=== PATIENT | male | born 1985 | race Caucasian/White ===

== ENCOUNTER 2022-12-13 16:13 | Emergency (ER) | payer BC, SELFPAY ==
[2022-12-13 16:30] VITALS: BP 141/78; PULSE 82; RESP 20; TEMP 37.1; O2SAT 98; BMI 27.3
--- NOTE | 2022-12-13 16:50 | EXP.UTC ---
Discharge Plan Disposition Patient Disposition: Home, Self-Care Condition: Good Prescriptions Prescriptions: New moxifloxacin 0.5 % drops 1 drp ophthalmic (eye) TID 7 Days Qty: 3 0RF Rx Instructions: left eye Referrals Follow up/Referrals: Provider,Referral, MD [Primary Care Provider] - See instructions Activity Restrictions/Add. Instructions Additional Instructions/Restrictions: Wash hands before and after applying eye drops Clean matting from eye with warm water and baby shampoo Follow up with your Family Doctor or Eye Doctor if no improvement or any worsening of symptoms Return if needed Clinical Impressions Clinical Impression: Conjunctivitis Stand Alone Forms Stand Alone Forms: Work/School Release Instructions Patient Instructions: DI for Conjunctivitis Discharge ED Provider: Olimpia Alan [facility] General Stated complaint: possible pink eye left Mode of Arrival: Ambulatory Source of Information: Patient Limitations: No Limitations Time Seen by Provider: 12/13/22 16:50 Description of Symptoms (Recalled from Triage Doc. by RN): pink eye HEENT Symptoms (Recalled from RN notes): Yes Resp Symptoms (Recalled from RN notes): No Skin Symptoms (Recalled from RN notes): No MS Symptoms (Recalled from RN notes): No Functional Status (Recalled from RN notes): n/a History of Present Illness Provider Complaint: Patient states that he noticed his left eye was looking red and matted this morning and as the day went on today it continued to have drainage and was getting worse so he came in to get it checked Related Data Previous Rx's Medication Instructions Recorded moxifloxacin 0.5 % eye drops 1 drp ophthalmic (eye) TID 7 days 12/13/22 #3 mL Allergies Allergy/AdvReac Type Severity Reaction Status Date / Time No Known Allergies Allergy Verified 12/13/22 16:43 Worker's Comp Is this a Worker's Comp case?: No [facility] Disclaimer: The information contained in this section may have been updated after the patient was seen, as this information can be updated by other users. Social History Smoking Status: Unknown if ever smoked alcohol intake: never current occupational status: employed Travel in the last 8 weeks: None ROS Obtained: Yes All systems reviewed & no additional complaints except as documented and Yes Systems reviewed as appropriate & no additional complaints except as documented Constitutional Constitutional: Reports system reviewed and no additional complaints, except as documented and Reports as per HPI Eyes Eyes: Reports system reviewed and no additional complaints, except as documented, Reports as per HPI, Reports eye discharge (left eye) and Reports irritation (left eye drianage and matting particles noted in lashes) ENT Ears, Nose, Mouth, and Throat: Reports system reviewed and no additional complaints, except as documented and Reports as per HPI Cardiovascular Cardiovascular: Reports system reviewed and no additional complaints, except as documented and Reports as per HPI Respiratory Respiratory: Reports system reviewed and no additional complaints, except as documented and Reports as per HPI Gastrointestinal Gastrointestingal: Reports system reviewed and no additional complaints, except as documented and as per HPI Physical Exam General General appearance: alert and in no apparent distress Eye Eye exam: Present conjunctival redness (redness to left eye) and discharge (yellowish drainage and mild swelling noted with matting particles in lashes) Respiratory Respiratory exam: Present normal lung sounds bilaterally; Absent respiratory distress or wheezes Cardiovascular Cardiovascular exam: Present regular rate, normal rhythm and normal heart sounds Neurological Exam Neurological exam: Present alert, oriented X3 and normal gait Medical Decision Making Beto Inquiry Pt receiving controlled substance: No Beto was queried for this patient: No Vital Signs:
[2022-12-13 17:15] VITALS: BP 141/78; PULSE 82; RESP 19; TEMP 37.1; O2SAT 98
== END 2022-12-13 17:14 | disposition home or self-care (01) ==
PROVIDERS: Emergency Provider Nurse Practitioner
DX: H10.9 Unspecified conjunctivitis (principal)
CPT/HCPCS: 99212; 99213; G0463

== ENCOUNTER → 2023-03-23 11:16 | Outpatient (CLI) | payer BC, SELFPAY ==
--- NOTE | 2023-03-23 11:18 | XR_ITS ---
FINAL REPORT CLINICAL HISTORY: RT KNEE PAIN FINDINGS: Right knee Three views were obtained. There is no acute fracture or dislocation. The joint spaces appear normal. No soft tissue abnormality is identified. IMPRESSION: No acute process. Reviewed, Interpreted and Dictated by Blane Parker III, MD Transcribed by Polina Lopes Authenticated and [facility]
== END ==
LOC: RAD 11:16
PROVIDERS: PCP Family Medicine; Visit Provider Family Medicine
DX: M25.561 Pain in right knee (principal)
CPT/HCPCS: 73562

== ENCOUNTER → 2023-04-18 11:03 | Outpatient (CLI) | payer BC, SELFPAY ==
--- NOTE | 2023-04-18 11:09 | MR_ITS ---
FINAL REPORT CLINICAL HISTORY: PAIN IN RIGHT KNEE tightness, pressure and posterior knee pain FINDINGS: Multi planar MR imaging was performed of the right knee. The anterior and posterior cruciate ligaments are intact. The quadriceps and patellar tendons are intact. The medial and lateral menisci are intact without evidence of tear. There is intrasubstance degenerative change of the posterior horn of the medial meniscus. The medial and lateral collateral ligaments appear intact. The medial and lateral retinacula appear intact. There is no evidence of bone marrow edema or osteochondral defect. No evidence of soft tissue inflammatory reaction. 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 Otherwise unremarkable MRI of the right knee. Reviewed, Interpreted and Dictated by Chavo Land MD Transcribed by Mini Espinosa Authenticated and [facility]
== END ==
LOC: RAD 11:04
PROVIDERS: PCP Family Medicine; Visit Provider Family Medicine
DX: M25.561 Pain in right knee (principal)
CPT/HCPCS: 73721

== ENCOUNTER 2025-10-29 15:50 | Outpatient (CLI) | payer BC, SELFPAY ==
--- OUTSIDE RECORDS SUMMARY | 2024-11-06 08:30 | XMS_ITS ---
Author Organization [facility] Address [address] [place] [address] [address] [facility] [address] [place] [id number] Care Team Providers Care Health And Social Care Teacher Name Role Phone Sabas Duckworth Unavailable [phone] Allergies No Known Allergies REASON FOR VISIT 2 cysts needs to be looked at Social History Tobacco Use: Social History Observation Description Date Details (start date - stop date) Current Smoker 03/23/2003 - NA CURRENT TOBACCO USE: Question Answer Notes Are you a: current smoker When did you start smoking? 03/23/2003 How often do you smoke cigarettes? every day How many cigarettes a day do you smoke? 11-20 Are you interested in quitting? Ready to quit Encounters Encounter Location Date Provider Diagnosis [facility] [facility] 36 [facility] [address] [place] [id number] 11/06/2024 Sabas Duckworth Plan Of Treatment Next Appt Details Provider Name:Sabas claudio, 10/29/2025 03:45:00 PM, [address] [facility] 36 [facility], [address], [place], [id number], Provider Name:Sabas claudio, 01/27/2026 11:45:00 AM, [address] [place] [address], [address], [place], [phone], Progress Notes * Anselmo MORROWDOB:[birth year] (40 yo M)Acc No.[id number]:11/06/2024 Progress Notes Patient: Anselmo ARZATE Provider: Anthony Duckworth M.D. :1985 A ge:39 Y S ex:Male Date:11/06/2024 Address:[address] [place] [address] [place], [id number] Subjective: * Chief Complaints: * 1 . 2 cysts needs to be looked at. * HPI: D ermatology: 39 year old male presents with c/o cyst . * ROS: C ARDIOLOGY: no D izziness. n o C hest pain. G ASTROENTEROLOGY: no N ausea. n o V omiting. U ROLOGY: no D ifficulty urinating. n o B lood in urine. * Medical History: H ypertension, Hyperlipidemia, Sleep apnea. * Surgical History: w isdom teeth 2004. * Hospitalization/Major Diagno stic Procedure: D enies Past Hospitalization. * Family History: F ather: alive. M other: alive. P aternal Grand Father: , diagnosed with Diabetes. P aternal Grand Mother: , diagnosed with Cancer. M aternal Grand Father: . M aternal Grand Mother: , diagnosed with Diabetes. 2 brother(s) , 1 sister(s) - healthy. 3 son(s) , 2 daughter(s) . . * Social History: C URRENT TOBACCO USE: Yes A re you a: c urrent smoker, W hen did you start smoking? 0 03/23/2003, H ow often do you smoke cigarettes? e very day, H ow many cigarettes a day do you smoke? 1 1-20, A re you interested in quitting? R veronika to quit. C affeine: yes, frequency: coffee-occasional. Soda -3 per day. Marital Status: Single. Alcohol: yes, social. Occupation: employed, [employer] service. Recreational drug use: no. * Allergies: N .K.D.A. Objective: * Vitals: Assessment: Plan: * Treatment: * Images: Billing Information: * Visit Code: * Procedure Codes: * Electronic signature of Marilyn Duckworth MD on 10/29/2025 at 03:52 PM EST Sign off status: Pending * Provider: Anthony Duckworth M.D. Date: 0 11/06/2024 Generated for Rey hansen/Christiano/Mya on: 03:52 PM EST History and Physical Notes * HPI (History of Present Illness) Category Sub-Category Detail Notes Category Not es Dermatology cyst
--- OUTSIDE RECORDS SUMMARY | 2024-12-02 05:15 | XMS_ITS ---
Author Organization [facility] Address [address] [facility] 36 [facility] [address] [place] [id number] Care Team Providers Care Commercial Teller Name Role Phone Sabas Duckworth Unavailable [phone] Allergies No Known Allergies Results Component Value Reference Range Notes CBC Venipuncture (in house) Reviewed date:12/02/2024 12:21:40 PM Interpretation: Performing Lab: Notes/Report: wbc 7.8 3.5 - 10 lymph 25.1% 15 - 50 mid 7.2% 2 - 15 gran 67.7% 35 - 80 rbc 5.44 3.5 - 5.5 hgb 17.3 11.5 - 16.5 hct 50.6 35 - 55 mcv 92.8 75 - 100 mch 31.9 25 - 35 mchc 34.3 31 - 38 platlet 251 100 - 400 P-Comprehensive Metabolic Pa inderjit (CMP) Reviewed date:12/03/2024 08:58:52 AM Interpretation: Normal Performing Lab: Notes/Report: Test performed by [facility], [employer] [address] [place] [address] , [address], [place] [address] Arcadio Talbot MD, Receptionist Scheduler CLIA: [id number] Sodium 139 135-145 mmol/L Potassium 4.6 3.5-5.3 mmol/L Chloride 104 97-108 mmol/L CO2 26 22-32 mmol/L Glucose 90 65-99 mg/dL BUN 17 6-20 mg/dL Creatinine 1.07 0.70-1.30 mg/dL Calcium 9.9 8.6-10.4 mg/dL eGFR by Creatinine 90 >59 mL/min/1.73m2 Protein 7.2 6.0-8.3 g/dL Albumin 4.8 3.5-5.3 g/dL Alkaline Phosphatase 73 40-129 IU/L ALT (SGPT) 15 <5-55 IU/L AST (SGOT) 16 <5-46 IU/L Bilirubin, Total 0.4 <0.2-1.2 mg/dL A/G Ratio 2.0 1.1-2.5 P-Lipid Panel Reviewed date:12/03/2024 08:58:52 AM Interpretation:chol 213, hdl 36, chol/hdl 5.92, non-hdl 177, ldl 157, ldl/hdl 4.4 Performing Lab: Notes/Report: Test performed by [facility] [facility], [address] , [address], [place] [address] Arcadio Talbot MD, Receptionist Scheduler CLIA: [id number] Cholesterol 213 <200 mg/dL Triglycerides 99 <150 mg/dL HDL Cholesterol 36 >39 mg/dL Cholesterol / HDL Ratio 5.92 0.00-4.99 Ratio Non-HDL Cholesterol 177 <130 mg/dL LDL Cholesterol (Calculation) 157 <130 mg/dL LDL Cholesterol Levels* Less than 100 mg/dL Optimal 100 to 129 mg/dL Near Optimal/ Above Optimal 130 to 159 mg/dL Borderline High 160 to 189 mg/dL High 190 mg/dL and above Very High * Categories as recommended by the 2004 ATPIII guidelines LDL/HDL Ratio 4.4 <3.3 Ratio LDL Cholesterol Patient History Test Date: 12/02/2024 LDL Results: 157 Units: mg/dL % Change: - P-TSH reflex to FT4 Reviewed date:12/03/2024 08:58:52 AM Interpretation: Normal Performing Lab: Notes/Report: Test performed by [facility] [address] , [address], [place] [address] Arcadio Talbot MD, Receptionist Scheduler CLIA: [id number] TSH reflex to FT4 1.03 0.43-5.25 mU/L P-Microalbumin/Creatinine, R andom Urine Sample Reviewed date:12/03/2024 08:58:52 AM Interpretation: Normal Performing Lab: Notes/Report: Test performed by [facility] [address] , [address], [place] [address] Arcadio Talbot MD, Receptionist Scheduler CLIA: [id number] Albumin/Creatinine Ratio, Urine 4 0-30 ug/m g Microalbumin, Urine, Random 0.9 Creatinine, Urine 203.8 Reason For Referral Reason Please arrange in [facility] Diagnosis 1 Scrotal abscess (N49 .2) Referral Organization [facility] Referring Provider First Name Sabas Referring Provider Last Name Donita Referring Provider Speciality [facility] ctice Referred Provider Rufino Heard Referred Provider Specialty Urology General Notes Amira Russell 12:39:44 PM > [phone] Brynn 12/02/2024 1:06:14 PM > spoke with Chani; faxed to Dr. Heard's office Referral Priority Routine REASON FOR VISIT 2 cysts, one in groin and one in crack Medications Medication SIG (Take, Route, Fr equency, Duration) Notes Start Date End Date Status Bactrim DS 800-160 MG 1 tablet Orally Tw o times a day; Duration: 7 days 12/02/2024 Active Social History Tobacco Use: Social History Observation Description Date Details (start date - stop date) Current Smoker 03/23/2003 - NA CURRENT TOBACCO USE: Question Answer Notes Are you a: current smoker When did you start smoking? 03/23/2003 How often do you smoke cigarettes? every day How many cigarettes a day do you smoke? 11-20 Are you interested in quitting? Ready to quit Problems Problem Type SNOMED Code ICD Code Onset Dates Problem Status W/U Status Risk Notes Problem Essential hypertension (96745703) Essential hypertension (I10) Active confirmed Problem Pure hypercholesterolemia (979699475) Pure hypercholesterolemia (E78.00) Active confirmed Vital Signs Blood pressure systolic 119 mm Hg 12/02/19 25 Blood pressure diastolic 82 mm Hg 025 Heart Rate 84 /min 12/02/2024 Height 68 in 12/02/2024 Weight 173.2 lbs 12/02/2024 BMI 26.33 kg/m2 12/02/2024 Encounters Encounter Location Date Provider Diagnosis [facility] [address] [place], [place] [id number] 12/02/2024 Sabas Duckworth Scrotal abscess N49. 2 ; Rectal pain K62.89 ; Essential hypertension I10 and Pure hypercholesterolemia E78.00 Assessments Encounter Date Diagnosis (ICD Code) Assessment Notes Treatment Notes Treatment Clinical Notes Section Notes 12/02/2024 Scrotal abscess (ICD -10 - N49.2) 12/02/2024 Rectal pain (ICD-10 - K62.89) Patient will call with a progress report 12/02/2024 Essential hypertensi on (ICD-10 - I10) 12/02/2024 Pure hypercholesterolemia (ICD-10 - E78.00) Plan Of Treatment Medication Medication Name Sig Start Date Stop Date Notes Bactrim DS 800-160 MG 1 tablet Orally Tw o times a day; Duration: 7 days 12/02/2024 Treatment Notes Assessment Notes Rectal pain Patient will call [facility] a progress report Referrals Referral Date Details 12/02/2024 12/02/2024, Please a rrange in Rufino Daniels Next Appt Details Follow Up: via phone to repo rt progress, Reason: Provider Name:Sabas claudio, 10/29/2025 03:45:00 PM, [address], [address], [place], [id number], Provider Name:Sabas claudio, 01/27/2026 11:45:00 AM, [address], [address], [place], [phone], Progress Notes * Low MORROW:[birth year] (40 yo M)Acc No.[id number]:12/02/2024 Progress Notes Patient: Anselmo ARZATE Provider: Anthony Duckworth M.D. :1985 A ge:39 Y S ex:Male Date:12/02/2024 Address:[address] [place] [address], [place] [address] Subjective: * Chief Complaints: * 1 . 2 cysts, one in groin and one in crack . * HPI: D ermatology: 39 year old male presents with c/o cyst P t complains of cyst i n lt groin area a nd rt buttock. Pt states that he has had drainage from cyst in groin but no pain. Pt states cyst on rt buttock is painful. * ROS: C ARDIOLOGY: no D izziness. n o C hest pain. G ASTROENTEROLOGY: no N ausea. n o V omiting. U ROLOGY: no D ifficulty urinating. n o B lood in urine. * Medical History: H ypertension, Hyperlipidemia, Sleep apnea, 25 pack year smoking history as of 2024. * Surgical History: w isdom teeth 2004. [...] Status: Single. Alcohol: yes, social. 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 Recreational drug use: no. * Medications: N one * Allergies: N .K.D.A. Objective: * Vitals: W t:173.2, Temp:97.9, BP:119/82, HR:84, Nurse:gregorio, Ht: 68, BMI:26.33. * Examination: G eneral Examination: General Appearance: N AD. H eart: R SR. L ungs:?clear to auscultation. S kin: r ight side of anus with a small tender location, some induration, no skin redness or drainage. G enitalia: r ight lower scrotum with a small indurated area of skin, small amount of pus expressed from site that patient had stuck with a needle. Assessment: * Assessment: 1. S crotal abscess - N49.2 (Primary) 2 . R ectal pain - K62.89 ?3. E ssential hypertension - I10 4 . P ure hypercholesterolemia - E78.00 Plan: * Treatment: Value Reference Range w bc 7.8 3.5 - 10 * l ymph 25.1% 15 - 50 * m id 7.2% 2 - 15 * g ran 67.7% 35 - 80 * r bc 5.44 3.5 - 5.5 * h gb 17.3 11.5 - 16.5 * h ct 50.6 35 - 55 * m cv 92.8 75 - 100 * m ch 31.9 25 - 35 * m chc 34.3 31 - 38 * p latlet 251 100 - 400 * Melisas Razo 12/02/2024 11:13:54 AM > , Provider reviewed results while patient in office. ? Referral To:Rufino Heard??Urology ?Reason:Please arrange in [place] 2.?Rectal pain? Notes: Patient will call with a progress report??3.?Essential hypertension?LAB: P-Comprehensive Metabolic Panel (CMP) (Collection Date & Time - 12/02/2024 09:55 AM)?Normal* Value Reference Range A /G Ratio 2.0 1.1-2.5 - * A lbumin 4.8 3.5-5.3 - g/dL * A lkaline Phosphatase 73 40-129 - IU/L * A LT (SGPT) 15 <5-55 - IU/L * A ST (SGOT) 16 <5-46 - IU/L * B ilirubin, Total 0.4 <0.2-1.2 - mg/dL * B UN 17 6-20 - mg/dL * C alcium 9.9 8.6-10.4 - mg/dL * C hloride 104 97-108 - mmol/L * C O2 26 22-32 - mmol/L * C reatinine 1.07 0.70-1.30 - mg/dL * G lucose 90 65-99 - mg/dL * P otassium 4.6 3.5-5.3 - mmol/L * S odium 139 135-145 - mmol/L * P rotein 7.2 6.0-8.3 - g/dL * e GFR by Creatinine 90 >59 - mL/min/1.73m2 * Annabel Penn 12/03/2024 8:58:4 5 AM >See phone encounter ?LAB: P-Microalbumin/Creatinine, Random Urine Sample (Collection Date & Time - 12/02/2024 09:55 AM)?Normal* Value Reference Range A lbumin/Creatinine Ratio, Urine 4 0-30 - ug /mg * C reatinine, Urine 203.8 - mg/dL * M icroalbumin, Urine, Random 0.9 - mg/dL * Annabel Penn 12/03/2024 8:58:4 5 AM >See phone encounter 4.?Pure hypercholesterolemia?LAB: P-Comprehensive Metabolic Panel (CMP) (Collection Date & Time - 12/02/2024 09:55 AM)?Normal* Value Reference Range A /G Ratio 2.0 1.1-2.5 - * A lbumin 4.8 3.5-5.3 - g/dL * A lkaline Phosphatase 73 40-129 - IU/L * A LT (SGPT) 15 <5-55 - IU/L * A ST (SGOT) 16 <5-46 - IU/L * B ilirubin, Total 0.4 <0.2-1.2 - mg/dL * B UN 17 6-20 - mg/dL * C alcium 9.9 8.6-10.4 - mg/dL * C hloride 104 97-108 - mmol/L * C O2 26 22-32 - mmol/L * C reatinine 1.07 0.70-1.30 - mg/dL * G lucose 90 65-99 - mg/dL * P otassium 4.6 3.5-5.3 - mmol/L * S odium 139 135-145 - mmol/L * P rotein 7.2 6.0-8.3 - g/dL * e GFR by Creatinine 90 >59 - mL/min/1.73m2 * Annabel Penn 12/03/2024 8:58:4 5 AM >See phone encounter ?LAB: P-Lipid Panel (Collection Date & Time - 12/02/2024 09:55 AM)?chol 213, hdl 36, chol/hdl 5.92, non-hdl 177, ldl 157, ldl/hdl 4.4* Value Reference Range C holesterol / HDL Ratio 5.92 H 0.00-4.99 - Ratio * C holesterol 213 H <200 - mg/dL * H DL Cholesterol 36 L >39 - mg/dL * L DL Cholesterol (Calculation) 157 H <130 - mg/d L * L DL/HDL Ratio 4.4 H <3.3 - Ratio * N on-HDL Cholesterol 177 H <130 - mg/dL * T riglycerides 99 <150 - mg/dL * Annabel Penn 12/03/2024 8:58:4 5 AM >See phone encounter ?LAB: P-TSH reflex to FT4 (Collection Date & Time - 12/02/2024 09:55 AM)? Normal* Value Reference Range T SH reflex to FT4 1.03 0.43-5.25 - mU/L * Annabel Penn 12/03/2024 8:58:4 5 AM >See phone encounter * Procedure Codes: 8 5025 CBC WITH AUTO DIFF, 3074F SYST BP LT 130 MM HG, 3079F DIAST BP 80-89 MM HG * Follow Up: v ia phone to report progress * Images: Billing Information: * Visit Code: 11485 Office Visit, Est Pt., Level 4. * Procedure Codes: 28912 CBC WITH AUTO DIFF. 3074F SYST BP LT 130 MM HG. 3079F DIAST BP 80-89 MM HG. * Electronic signature of Marilyn Duckworth MD on 10/29/2025 at 03:52 PM EST Sign off status: Pending * Provider: Anthony Duckworth M.D. Date: 0 12/02/2024 Generated for Printi ng/Michaelg/eTransmitting on: 1 03:52 PM EST History and Physical Notes * HPI (History of Present Illness) Category Sub-Category Detail Notes Category Not es Dermatology cyst Pt complains of cyst in lt groin area and rt buttock. Pt states that he has had drainage from cyst in groin but no pain. Pt states cyst on rt buttock is painful Examination Category Sub-Category Detail Notes Category Not es General Examination Heart: RSR Lungs: clear to auscultatio n General Appearance: NAD Skin: right side of anus w ith a small tender location, some induration, no skin redness or drainage Genitalia: right lower scrotum with a small indurated area of skin, small amount of pus expressed from site that patient had stuck with a needle Consultation Request Notes Referral Date Referring Provider Referred Provider Not es 12/02/2024 Sabas Duckworth William Please arr celia in [place]
--- OUTSIDE RECORDS SUMMARY | 2025-05-07 05:45 | XMS_ITS ---
Author Organization [facility] Address [address] [place] [address] [address] [place] [id number] Care Team Providers Care Licensed Optician Name Role Phone Sabas Duckworth Unavailable [phone] Allergies No Known Allergies REASON FOR VISIT Discuss Emotional Support Pet Social History Tobacco Use: Social History Observation [...] Encounter Location Date Provider Diagnosis [facility] [address] [facility] [address] [place] [id number] 05/07/2025 Sabas Duckworth Plan Of Treatment Next Appt Details Provider Name:Sabas claudio, 10/29/2025 03:45:00 PM, [address], [address], [place], [phone], Provider Name:Sabas claudio, 01/27/2026 11:45:00 AM, [address] [place] [address] [address], [place], [id number], Progress Notes * Anselmo MORROWDOB:[birth year] (40 yo M)Acc No.[id number]:05/07/2025 Progress Notes Patient: Anselmo ARZATE Provider: Anthony Duckworth M.D. :1985 A ge:39 Y S ex:Male Date:05/07/2025 Address:[address] [place] [address], [id number] Subjective: * Chief Complaints: * 1 . Discuss Emotional Support Pet. * ROS: D ERMATOLOGY: no R lloyd. n o H magdalene. G ASTROENTEROLOGY: no N ausea. n o [...] Status: Single. Alcohol: yes, social. 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 Recreational drug use: no. * Allergies: N .K.D.A. Objective: * Vitals: Assessment: Plan: * Treatment: * Images: Billing Information: * Visit Code: * Procedure Codes: * Electronic signature of Marilyn Duckworth MD on 10/29/2025 at 03:52 PM EST Sign off status: Pending * Provider: Anthony Duckworth M.D. Date: 0 05/07/2025 Generated for Rey hansen/Christiano/Mya on: 03:52 PM EST
--- OUTSIDE RECORDS SUMMARY | 2025-10-29 15:52 | XMS_ITS | Clinical Summary ---
[facility] Address [address] [place] [address] Care Team Providers Care Store Stock Help Name Role Phone Sabas Duckworth MD Primary Care Provider + [phone] Allergies No known active allergies Medications No known medications Social History Tobacco Use Types Packs/Day Years Used Date Smoking Tobacco: Never Assessed Abuse Screen Answer Date Recorded Unsafe at Home or Work/School Not on file Feels Threatened by Someone? Not on file 06/2023 Does Anyone Keep You from Co ntacting Others or Doint Things Outside the Home? Not on file 08/07/2023 Physical Sign of Abuse Present Not on file 1 Housing Stability Answer Date Recorded Current Living Arrangements Not on file 06/2023 Potentially Unsafe Housing Conditions Not on lulú e 08/07/2023 Family and Community Support Answer Lito e Recorded Help with Day-to-Day Activities Not on file 08/07/2023 Lonely or Isolated Not on file 08/07/2023 Employment Answer Date Recorded Do you want help finding or keeping work or a fela b? Not on file 08/07/2023 Disabilities Answer Date Recorded Concentrating, Remembering, or Making Decisions Difficulty Not on file 08/07/2023 Doing Errands Independently Difficulty Not on fi le 08/07/2023 Education Answer Date Recorded Help with school or training? Not on file Preferred Language Not on file 08/07/2023 Sex and Gender Information Value Date Recorded Sex Assigned at Not on file Legal Sex Male 12:43 PM EDT Gender Identity Not on file Sexual Orientation Not on file Last Filed Vital Signs Vital Sign Reading Time Taken Comments Blood Pressure 122/84 03/13/2024 10:12 AM EDT Pulse 68 03/13/2024 10:12 AM EDT Temperature 37 C (98.6 F) 03/13/2024 10:12 AM EDT Respiratory Rate 16 03/13/2024 10:12 AM EDT Oxygen Saturation 98% 03/13/2024 10:12 AM EDT Inhaled Oxygen Concentration - - Weight 72.1 kg (159 lb) 03/13/2024 10:12 AM EDT Height 172.7 cm (5' 8 ) 03/13/2024 10:12 AM EDT Body Mass Index 24.18 03/13/2024 10:12 AM EDT Plan of Treatment Health Maintenance Due Date Last Done Comments ANNUAL PHYSICAL 1985 HEPATITIS C SCREENING 1985 TDAP/TD VACCINES (1 - Tdap) 2004 INFLUENZA VACCINE 05/30/2025 Pneumococcal Vaccine 0-49 Aged Out No longer eligible based on patient's age to complete this topic Insurance [place] [id number] [facility] PPO Care Teams Store Stock Help Relationship Specialty Start Date End Date Sabas Duckworth MD [address] [place] [address] PCP - General Family Medicine 03/13/24
--- NOTE | 2025-10-29 15:53 | XR_ITS ---
FINAL REPORT TECHNIQUE: Cervical spine 5 views CLINICAL HISTORY: DISORDER OF NECK TURNING HIS NECK MAKES IT HURT WORSE COMPARISON: None FINDINGS: AP, lateral, oblique and odontoid views of the cervical spine were obtained. There is no prior exam for comparison. There is no acute fracture or malalignment. Vertebral body height is preserved. There is mild degenerative disc disease present at the C6-7 level. The precervical soft tissues are normal. IMPRESSION: Mild C6-7 degenerative disc disease, without acute osseous abnormality. Reviewed, Interpreted and Dictated by Anuradha Rodriges MD Transcribed by Mini Espinosa Authenticated and [facility]
--- OUTSIDE RECORDS SUMMARY | 2025-10-29 15:53 | XMS_ITS | Patient Health Record ---
Author Organization [facility] Address [address] [place] [address] Support Name Relationship Address Phone Johanna Foster Emergency Contact [address] [phone] Reason For Referral No Information Problems Problem Type SNOMED Code ICD Code Onset Dates Problem Status W/U Status Risk Notes Problem Common cold (25867898) Common cold (460) Active confirmed Plan Of Treatment No Information Insurance Providers Payer Name Payer Address Payer Phone Subscriber Number Group Number Insured Name Patient Relationship to Insured Coverage Start Date Coverage End Date [facility] [address] [place] [address] [phone] [id number] Anselmo Foster Self - patient is the insured Medical (General) History Medical History History ICD Code dislocated hip
--- OUTSIDE RECORDS SUMMARY | 2025-10-29 15:53 | XMS_ITS | Patient Health Record ---
Author Organization [facility] Address [address] [facility] [address] [place] [id number] Care Team Providers Care Quality Assurance Name Role Phone Sabas Duckworth Unavailable [phone] Allergies No Known Allergies Results Component Value [...] Normal Performing Lab: Notes/Report: Test performed by [facility], [address] [place] [address] , [address], [place] [address] Arcadio Talbot MD, Dope Sprayer CLIA: [id number] Sodium 139 135-145 mmol/L Potassium 4.6 3.5-5.3 [...] 4.4 Performing Lab: Notes/Report: Test performed by [facility], [address] , [address], [place] [address] Arcadio Talbot MD, Dope Sprayer CLIA: [id number] Cholesterol 213 <200 mg/dL Triglycerides 99 <150 [...] Normal Performing Lab: Notes/Report: Test performed by [facility] [address] [place] [address] , [address], [place] [address] Arcadio Talbot MD, Dope Sprayer CLIA: [id number] TSH reflex to FT4 1.03 0.43-5.25 mU/L P-Microalbumin/Creatinine, R andom Urine Sample Reviewed date:12/03/2024 08:58:52 AM Interpretation: Normal Performing Lab: Notes/Report: Test performed by [facility] [address] , [address], [place] [address] Arcadio Talbot MD, Dope Sprayer CLIA: [id number] Albumin/Creatinine Ratio, Urine 4 0-30 ug/m g Microalbumin, Urine, Random 0.9 Creatinine, Urine 203.8 Reason For Referral Reason Please arrange in [facility] Diagnosis 1 Scrotal abscess (N49 .2) [facility] Referring Provider First Name Sabas Referring Provider Last Name Donita Referring Provider [facility] ctice Referred Provider Rufino Heard Referred Provider Specialty Urology General Notes Amira Russell 12:39:44 PM > [phone] Brynn 12/02/2024 1:06:14 PM > spoke with Chani; faxed to Dr. Heard's office Referral Priority Routine Reason In [place] Diagnosis 1 Encounter for vasect monse counseling (Z30.09) [facility] Referring Provider First Name Sabas Referring Provider Last Name Donita Referring Provider [facility] ctice Referred Provider Lex Heredia Referred Provider Specialty Urology Referral Priority Routine Medications Medication SIG (Take, Route, Fr equency, Duration) Notes Start Date End Date Status Nicoderm CQ 21 MG/24HR 1 patch to skin T ransdermal Once a day; Duration: 28 days 10/29/2025 Ac tive Meloxicam 15 MG 1 tablet Orally Once a day; Duration: 30 days 10/29/2025 Active Immunizations Vaccine Route Administration Date Status Comme nts MMR Unknown 09/20/1996 Administered Social History Tobacco Use: Social History Observation [...] W/U Status Risk Notes Problem Essential hypertension (10807356) Essential hypertension (I10) Active confirmed Problem Disorder of neck (868670504) Disorder of neck (M53.82) Active confirmed Problem Cigarette smoker (69386756) Cigarette smoker (F17.210) Active confirmed Problem Pure hypercholesterolemia (751523421) Pure hypercholesterolemia (E78.00) Active confirmed Vital Signs Heart Rate 67 /min 10/29/2025 Blood pressure diastolic 78 mm Hg 10/29/2025 Height 68 in 10/29/2025 Blood pressure systolic 120 mm Hg 10/29/2025 Weight 177 lbs 10/29/2025 BMI 26.91 kg/m2 10/29/2025 Encounters Encounter Location Date Provider Diagnosis [facility] [address] [place], [place] [id number] 12/02/2024 Sabas Alfred Scrotal abscess N49. 2 ; Rectal pain K62.89 ; Essential hypertension I10 and Pure hypercholesterolemia E78.00 [facility] [address] [place], [place] [id number] 10/29/2025 Sabas Alfred Pure hypercholestero lemia E78.00 ; Cigarette smoker F17.210 ; Encounter for vasectomy counseling Z30.09 and Disorder of neck M53.82 [facility] [address] [place], [place] [id number] 12/03/2024 Sabas Alfred [facility] [address] [place], [place] [id number] 01/21/2025 Sabas Alfred Assessments Encounter Date Diagnosis (ICD Code) Assessment Notes Treatment Notes Treatment Clinical Notes Section Notes 12/02/2024 Rectal pain (ICD-10 - K62.89) Patient will call with a progress report 12/02/2024 Scrotal abscess (ICD -10 - N49.2) 10/29/2025 Cigarette smoker (IC D-10 - F17.210) 10/29/2025 Pure hypercholesterolemia (ICD-10 - E78.00) 10/29/2025 Encounter for vasect monse counseling (ICD-10 - Z30.09) 12/02/2024 Essential hypertensi on (ICD-10 - I10) 12/02/2024 Pure hypercholesterolemia (ICD-10 - E78.00) 10/29/2025 Disorder of neck (IC D-10 - M53.82) Plan Of Treatment Pending Test Test Name Order Date X ray : Spine, cervical 10/29/2025 Next Appt Details Provider Name:Sabas claudio, 10/29/2025 03:45:00 PM, [address], [place], [place], [id number], Provider Name:Sabas claudio, 01/27/2026 11:45:00 AM, [address], [address], [place], [place], [id number], Insurance Providers Payer Name Payer Address Payer Phone Subscriber Number Group Number Insured Name Patient Relationship to Insured Coverage Start Date Coverage End Date [employer] [address] [place] [address] [id number] Anselmo Foster Self - patient is the insured Medical (General) History Medical History History ICD Code Hypertension Hyperlipidemia Sleep apnea 25 pack year smoking history as of 2024 Surgical History Surgery Date(Month/Year) wisdom teeth 2005
== END 2025-10-29 23:59 | disposition home or self-care (01) ==
LOC: RAD 15:50
PROVIDERS: PCP Family Medicine; Visit Provider Family Medicine
DX: M50.323 Other cervical disc degeneration at C6-C7 level
CPT/HCPCS: 72050